=== PATIENT | female | born 1935 | race African-American/Black ===

== ENCOUNTER 2019-01-29 15:21 | Inpatient (IN) ==
[2019-01-29] MEDS ORDERED: ASPIRIN PO ONE (15:30)
--- NOTE | 2019-01-29 16:14 | PROVIDER DOCUMENTATION ---
HPI-Respiratory General - General Chief Complaint: Shortness of Breath Stated Complaint: SOB Time Seen by Provider: 01/29/19 15:23 Source: patient, family Allergies/Adverse Reactions: Patient Allergies Allergy/AdvReac Type Severity Reaction Status Date / Time No Known Allergies Allergy Verified 01/29/19 16:07 Home Medications: Home Medication List Medication Instructions Recorded Confirmed Last Taken Type Donepezil HCl 01/29/19 Unknown History - History of Present Illness-Resp Nature of Presenting Problem: reports having sob x4 days and worsenign today. when she takes deep breath she gets chest pressure of the left. nonradiating to her left arm, or jaw. denied fever chills, n/v, abd pain. +cough and rhinorrhea. Review of Systems - Adult - REVIEW OF SYSTEMS - ADULT Constitutional: reports: no symptoms reported Eyes: reports: no symptoms reported Ears, Nose, Mouth & Throat: reports: no symptoms reported Cardiovascular: reports: no symptoms reported Respiratory: reports: no symptoms reported Gastrointestinal: reports: no symptoms reported Genitourinary: reports: no symptoms reported Musculoskeletal: reports: no symptoms reported Integumentary: reports: no symptoms reported Neurological: reports: no symptoms reported Psychiatric: reports: no symptoms reported Endocrine: reports: no symptoms reported Hematologic/Lymphatic: reports: no symptoms reported Allergic/Immunologic: reports: no symptoms reported All Other Systems: Reviewed and Negative Past History - Adult - PAST MEDICAL HISTORY-ADULT Review of Records: reports: Old Records Reviewed, Nursing Assessment Review, Medications Reviewed, Social history reviewed & non-contributory. Major Childhood Illnesses: reports: denies history Cardiovascular: reports: HTN, hyperlipidemia Respiratory: reports: asthma Gastrointestinal: reports: denies history Obstetrical/Gynecological: reports: denies history Genitourinary: reports: denies history Musculoskeletal: reports: denies history Neurological: reports: denies history Endocrine/Immune: reports: denies history Other Conditions: reports: denies history - PRIOR SURGERIES/PROCEDURES Surgical/Procedure History: reports: hysterectomy - IMMUNIZATION STATUS Childhood Immunizations: See Nurse Assessment Flu Vaccine: See Nurse Assessment - FAMILY HISTORY Family History: reviewed, not pertinent - SOCIAL HISTORY Smoking: denies Substance Use: none/never Alcohol Use Frequency: never Living Situation: family Physical Exam-General - PHYSICAL EXAM-ADULT Initial Vital Signs Reviewed: Yes - CONSTITUTIONAL General Appearance: appears well, alert, moderate distress - EYES Eyes: PERRL/EOMI, pink conjunctivae - HEART Score HEART Score: History: Moderately Suspicious HEART Score: ECG: Non-Specific Repolarization Disturbance/LBBB/PM HEART Score: Age: > or = 65 Years HEART Score: Risk Factors for Atherosclerotic Disease: 1 or 2 Risk Factors HEART Score: Troponin: < or = Normal Limit Total HEART Score:: 5 Progress - PLAN OF CARE/RESULTS Progress/Plan/Lab Results: Vital Signs - 8 hr 01/29/19 15:23 01/29/19 17:27 Temperature 98.4 F 98.2 F Pulse Rate 104 H 100 H Respiratory Rate 20 20 Blood Pressure 152/89 128/70 O2 Sat by Pulse Oximetry 99 96 Laboratory Results - last 24 hr 01/29/19 01/29/19 01/29/19 16:26 17:14 17:14 WBC RBC Hgb Hct MCV MCH MCHC RDW Std Deviation Plt Count MPV Immature Gran % (Auto) Neut % (Auto) Lymph % (Auto) Dale % (Auto) Eos % (Auto) Baso % (Auto) Immature Gran # (Auto) Neut # (Auto) Lymph # (Auto) Dale # (Auto) Eos # (Auto) Baso # (Auto) PT INR PTT (Actin FS) D-Dimer, Quantitative 2.16 H Specimen Type ARTERIAL Sample Site R RADIAL pH 7.45 pCO2 32 L pO2 68 HCO3 24.0 Base Excess -1.0 Oxyhemoglobin 93.4 L ABG O2 Sat (Calculated) 17.6 ABG O2 Saturation 96.8 ABG Carboxyhemoglobin 2.40 ABG Methemoglobin 1.1 Db Test YES A-a O2 Difference 42.0 Total Hemoglobin 13.4 Lactate 0.60 Blood Gas Modality ROOM AIR FiO2 % 21.0 Sodium 139 Potassium 4.7 Chloride 103 Carbon Dioxide 23 L Anion Gap 13 BUN 12 Creatinine 0.8 Estimated GFR/1.73 m2 > 60 BUN/Creatinine Ratio 15 Glucose 91 Calculated Osmolality 277 Calcium 9.3 Magnesium 1.7 Total Bilirubin 0.30 AST 10 ALT 5 L Alkaline Phosphatase 111 H Creatine Kinase 47 Troponin T Dqx-R-Gkmystndqst Pept Total Protein 6.8 Albumin 3.6 Globulin 3.0 Albumin/Globulin Ratio 1.0 01/29/19 01/29/19 01/29/19 17:14 17:14 17:14 WBC 8.14 RBC 4.98 Hgb 12.5 Hct 38.9 MCV 78.1 L MCH 25.1 L MCHC 32.1 L RDW Std Deviation 15.1 H Plt Count 367 MPV 10.0 Immature Gran % (Auto) 0.2 Neut % (Auto) 69.2 Lymph % (Auto) 15.8 L Dale % (Auto) 12.3 H Eos % (Auto) 2.3 Baso % (Auto) 0.2 Immature Gran # (Auto) 0.02 Neut # (Auto) 5.62 Lymph # (Auto) 1.29 Dale # (Auto) 1.00 H Eos # (Auto) 0.19 Baso # (Auto) 0.02 PT 14.9 INR 1.11 PTT (Actin FS) 33.0 D-Dimer, Quantitative Specimen Type Sample Site pH pCO2 pO2 HCO3 Base Excess Oxyhemoglobin ABG O2 Sat (Calculated) ABG O2 Saturation ABG Carboxyhemoglobin ABG Methemoglobin Db Test A-a O2 Difference Total Hemoglobin Lactate Blood Gas Modality FiO2 % Sodium Potassium Chloride Carbon Dioxide Anion Gap BUN Creatinine Estimated GFR/1.73 m2 BUN/Creatinine Ratio Glucose Calculated Osmolality Calcium Magnesium Total Bilirubin AST ALT Alkaline Phosphatase Creatine Kinase Troponin T Ajs-V-Fbrkevgqbya Pept 2034 H Total Protein Albumin Globulin Albumin/Globulin Ratio 01/29/19 17:14 WBC RBC Hgb Hct MCV MCH MCHC RDW Std Deviation Plt Count MPV Immature Gran % (Auto) Neut % (Auto) Lymph % (Auto) Dale % (Auto) Eos % (Auto) Baso % (Auto) Immature Gran # (Auto) Neut # (Auto) Lymph # (Auto) Dale # (Auto) Eos # (Auto) Baso # (Auto) PT INR PTT (Actin FS) D-Dimer, Quantitative Specimen Type Sample Site pH pCO2 pO2 HCO3 Base Excess Oxyhemoglobin ABG O2 Sat (Calculated) ABG O2 Saturation ABG Carboxyhemoglobin ABG Methemoglobin Db Test A-a O2 Difference Total Hemoglobin Lactate Blood Gas Modality FiO2 % Sodium Potassium Chloride Carbon Dioxide Anion Gap BUN Creatinine Estimated GFR/1.73 m2 BUN/Creatinine Ratio Glucose Calculated Osmolality Calcium Magnesium Total Bilirubin AST ALT Alkaline Phosphatase Creatine Kinase Troponin T < 0.010 Igy-C-Xqwmfgllexm Pept Total Protein Albumin Globulin Albumin/Globulin Ratio Orders Category Date Time Status Admit - [facility] Routine AdmDCTranf 01/29/19 18:35 Active Cardiac Monitoring DIRECTED Care 01/29/19 15:29 Active Cardiac Monitoring DIRECTED Care 01/29/19 15:30 Active Nursing- Obtain EKG ONCE Care 01/29/19 15:29 Active Oxygen Therapy- ED Nursing DIRECTED Care 01/29/19 15:30 Active Saline Loc NOW Care 01/29/19 15:30 Active CHEST-2 VIEWS [RAD] Stat Exams 01/29/19 15:29 Completed CTA [CT ANGIOGRM PULMONARY ARTERIES] [CT] Stat Exams 01/29/19 18:32 Ordered ABG [RESP] Routine Lab 01/29/19 16:26 Completed CBC WITH ELECTRONIC DIFF [HEME] Stat Lab 01/29/19 17:14 Completed CK PROFILE [SP CHEM] Stat Lab 01/29/19 17:14 Completed COMPREHENSIVE METABOLIC PANEL [CHEM] Stat Lab 01/29/19 17:14 Completed D-DIMER [COAG] Stat Lab 01/29/19 17:14 Completed MAGNESIUM [CHEM] Stat Lab 01/29/19 17:14 Completed PRO B-NATRIURETIC PEPTIDE Stat Lab 01/29/19 17:14 Completed PROTIME WITH INR [COAG] Stat Lab 01/29/19 17:14 Completed PTT [COAG] Stat Lab 01/29/19 17:14 Completed TROPONIN T Stat Lab 01/29/19 17:14 Completed Acetaminophen [Tylenol] Med 01/29/19 18:01 Discontinued 1,000 mg PO NOW ONE Albuterol 2.5MG/Ipratrop 0.5MG [Duoneb (A & A)] Med 01/29/19 18:15 Active 3 ml INH RTQ4H Aspirin Med 01/29/19 15:30 Discontinued 325 mg PO NOW ONE CefTRIAXONE [Rocephin] 1 gm Med 01/29/19 17:23 Discontinued 0.9% Sodium Chloride Inj [Ns] 50 ml IV NOW Furosemide [Lasix] Med 01/29/19 18:36 Discontinued 60 mg IV NOW ONE Aerosol Treatments Routine Oth 01/29/19 18:16 Active Aerosol Treatments Stat Oth 01/29/19 18:16 Active CP/SOB/Palp >45 yrs of Age Stat Oth 01/29/19 15:30 Ordered EKG [EKG] Stat Ther 01/29/19 15:29 Ordered EKG [EKG] Stat Ther 01/29/19 15:30 Ordered Transfer/Admit Order [TRANSFER] Routine Transfer 01/29/19 18:36 Ordered [facility] [address], [address], [place] [address] Department of Imaging Patient: SANJAY MCKEON ADM Date: 01/29/19 MR#: [id number] : 1935 ADM Status: REG ER Age/Sex: 83/F Room/Bed: Loc: P.ED Ordering Physician: Sonia Guardado MD Family Physician: Pinky Smith MD Reason for Procedure: sob ___ Signed EXAM: CHEST-2 VIEWS INDICATION: sob TECHNIQUE: 2 views COMPARISON: 02/06/2018 FINDINGS: There is airspace consolidation at the right lung base suggesting pneumonia. The left lung appears clear. There is no discrete pleural fluid collection or pneumothorax. The cardiomediastinal silhouette and central vasculature are grossly unremarkable. IMPRESSION: Right basilar consolidation suggesting pneumonia. Electronically signed by Volodymyr Roldan 01/29/2019 5:14 PM 01/29/19 1714 Interpreting Physician: Volodymyr Roldan MD Dictated Date/Time: 01/29/19 171 cc: Sonia Guardado MD; Pinky Smith MD Result Diagrams: 01/29/19 17:14 01/29/19 17:14 - CONSULTS/PCP/HOSPITALIST Notification #1 *Consult/PCP/Hospitalist*: Dr. Stoner Time Discussed: 18:35 (PNA, CHF, elevated ddimer. ) Consult Disposition: Admit Departure - Departure Date of Disposition Decision: 01/29/19 Time of Disposition Decision: 19:10 DIAGNOSIS: CAP (community acquired pneumonia), CHF (congestive heart failure), D-dimer, elevated Disposition: ADMITTED INPATIENT 09 Certified Medical Emergency: Emergent Condition: Stable Referrals and Follow-Ups: Pinky Smith MD [Primary Care Provider] - - Critical Care Note This patient required my direct & personal management of CC.: No Attestation - Physician/ DEYSI Attestation The physician spent face to face time with patient:: Yes Advanced Practice Provider documentation review:: Supervising physician onsite and consulted in the evaluation and care of this patient. The physician did have a face to face encounter with the patient.
[2019-01-29 16:41] LABS: BLOOD TYPE ARTERIAL; METHB 1.1 % (0.0-1.5); O2(CT) 17.6 mL/dL (15.0-23.0); O2HB 93.4 % (95.0-99.0); PCO2(98.6) 32 mmHg (35-45); PO2(98.6) 68 mmHg (60-100); SAMPLE BLOOD; SAO2 96.8 % (95.0-100.0); THB 13.4 g/dL (11.5-17.4); pH(98.6) 7.45 (7.35-7.45)
[2019-01-29 16:45] LABS: ALLEN TEST YES; MODALITY ROOM AIR
--- NOTE | 2019-01-29 17:17 | Diag Imaging Result Doc PS360 ---
EXAM: CHEST-2 VIEWS INDICATION: sob TECHNIQUE: 2 views COMPARISON: 02/06/2018 FINDINGS: There is airspace consolidation at the right lung base suggesting pneumonia. The left lung appears clear. There is no discrete pleural fluid collection or pneumothorax. The cardiomediastinal silhouette and central vasculature are grossly unremarkable. IMPRESSION: Right basilar consolidation suggesting pneumonia. Electronically signed by Volodymyr Roldan 01/29/2019 5:14 PM
[2019-01-29] MEDS ORDERED: ROCEPHIN 1 GM in NS 50 ML IV ONE (17:23)
[2019-01-29 17:32] LABS: BASO# 0.02 X1000 (0.0-0.2); BASO% 0.2 % (0.0-0.8); EOS# 0.19 X1000 (0.0-0.7); EOS% 2.3 % (0.0-10.0); HEMATOCRIT 38.9 % (37.0-47.0); HEMOGLOBIN 12.5 g/dL (12.0-16.0); IMM GRAN# 0.02 X1000 (0.0-0.04); IMM GRAN% 0.2 % (0.0-0.5); LYMPH# 1.29 X1000 (1.2-3.4); LYMPH% 15.8 % (20.5-51.1); MCH 25.1 PG (27-31); MCHC 32.1 g/dL (33-37); MCV 78.1 FL (81-99); MONO% 12.3 % (1.7-9.3); NEUT# 5.62 X1000 (1.4-6.5); NEUT% 69.2 % (42.2-75.2); PLT 367 X1000 (130-400); RBC 4.98 XMIL (4.2-5.4); RDW 15.1 % (11.5-14.5); WBC 8.14 X1000 (4.8-10.8)
[2019-01-29 17:39] LABS: INR 1.11; PROTIME 14.9 Seconds (11.0-16.0)
[2019-01-29] MEDS ORDERED: TYLENOL PO ONE (18:01)
[2019-01-29] MEDS ORDERED: LASIX IV ONE (18:36)
[2019-01-29 18:45] LABS: AGAP 13; ALBUMIN 3.6 g/dL (3.5-5.0); ALKALINE PHOSPHATASE 111 U/L (32-104); BUN 12 mg/dL (8-22); CALCIUM 9.3 mg/dL (8.8-10.2); CHLORIDE 103 mmol/L (98-107); CK PROFILE 47 U/L (24-173); COSMO 277; CREATININE 0.8 mg/dL (0.5-0.9); ESTIMATED GFR > 60; GLUCOSE 91 mg/dL (70-104); GOT 10 U/L (10-30); GPT 5 U/L (10-36); MAGNESIUM 1.7 mg/dL (1.5-2.7); POTASSIUM 4.7 mmol/L (3.5-5.1); SODIUM 139 mmol/L (136-145); TCO2 23 mmol/L (25-35); TOTAL PROTEIN 6.8 g/dL (6.3-8.3)
[2019-01-29] MEDS: DUONEB (A & A) INH SCH ×3 (18:58→23:20)
--- NOTE | 2019-01-29 20:37 | Diag Imaging Result Doc PS360 ---
EXAM: CT ANGIOGRM PULMONARY ARTERIES INDICATION: pe TECHNIQUE: This exam was performed using automated exposure control, adjustment of mA or kV according to patient size, and/or use of iterative reconstruction technique. Thin section axial images and 3-D MIPS were obtained. COMPARISON: None. FINDINGS: The pulmonary artery contrast bolus is slightly suboptimal. More of the contrast is in the pulmonary veins. There is a single small branch of the right pulmonary artery leading to the right lower lobe that can be seen on image 73 of series 4 that exhibits decreased opacification. Although this could be due to the suboptimal contrast bolus, a small pulmonary embolism cannot completely be excluded. No other pulmonary artery filling defects are appreciated. There is no thoracic aortic dissection or aneurysm. There are a few calcified mediastinal and right hilar lymph nodes indicating prior granulomatous disease. There is cardiomegaly. There are mild emphysematous changes. There is subsegmental atelectasis at both lower lung zones, more prominent on the right. Superimposed pneumonia, especially in the right middle lobe cannot completely be excluded. There is trace pleural fluid on the right. There is no pneumothorax. Limited views of the upper abdomen reveal several simple appearing renal cysts. IMPRESSION: 1.Small branch of the right pulmonary artery with diminished opacification. Although somewhat questionable, a solitary small pulmonary embolism cannot be excluded. 2.Mild pulmonary emphysema. 3.Subsegmental atelectasis at the lower lung zones, more prominent on the right. Superimposed pneumonia on the right is not excluded. 4.Other incidental/nonacute findings detailed above. Electronically signed by Volodymyr Roldan 01/29/2019 8:34 PM
[2019-01-30] MEDS: DUONEB (A & A) INH SCH ×5 (03:11→19:37)
--- NOTE | 2019-01-30 07:31 | EKG Report ---
Test Performed on : 01/29/2019 7:53:47 PM Test Reason : cp Blood Pressure : / mmHG Vent. Rate : 126 BPM Atrial Rate : 126 BPM P-R Int : 142 ms QRS Dur : 092 ms QT Int : 326 ms P-R-T Axes : 067 -42 117 degrees QTc Int : 472 ms Sinus tachycardia. Left axis deviation Left ventricular hypertrophy with repolarization abnormality Abnormal ECG When compared with ECG of 29-JAN-2019 15:46, (Unconfirmed) No significant change was found Unconfirmed Result
[2019-01-30 08:01] LABS: BASO# 0.04 X1000 (0.0-0.2); BASO% 0.5 % (0.0-0.8); EOS# 0.07 X1000 (0.0-0.7); EOS% 0.9 % (0.0-10.0); HEMATOCRIT 41.1 % (37.0-47.0); HEMOGLOBIN 13.2 g/dL (12.0-16.0); IMM GRAN# 0.01 X1000 (0.0-0.04); IMM GRAN% 0.1 % (0.0-0.5); LYMPH# 0.93 X1000 (1.2-3.4); LYMPH% 11.4 % (20.5-51.1); MCHC 32.1 g/dL (33-37); MONO# 0.74 X1000 (0.11-0.59); MONO% 9.1 % (1.7-9.3); MPV 9.5 FL (7.4-10.4); NEUT# 6.34 X1000 (1.4-6.5); PLT 388 X1000 (130-400); RBC 5.27 XMIL (4.2-5.4); WBC 8.13 X1000 (4.8-10.8)
[2019-01-30 08:24] LABS: CALCIUM 9.5 mg/dL (8.8-10.2); POTASSIUM 4.2 mmol/L (3.5-5.1)
[2019-01-30] MEDS: ROCEPHIN 2 GM in NS 50 ML IV SCH (09:29)
[2019-01-30] MEDS: ARICEPT PO SCH (10:34)
[2019-01-30] MEDS: LOVENOX SUBQ SCH ×2 (10:34→21:34)
--- NOTE | 2019-01-30 10:49 | HISTORY AND PHYSICAL ---
PRIMARY CARE PHYSICIAN: Pinky Smith MD CHIEF COMPLAINT: Shortness of breath and some left-sided chest pain nonradiating for the past 4 days that had progressively worsened. HISTORY OF PRESENTING ILLNESS: This is an 83-year-old female who presents to [facility] ER with complaints of shortness of breath for 4 days that progressively worsened. She began having some left-sided chest pain and pressure that did not radiate to her arm, jaw, or back. Her heart score was 5. Her workup showed a D-dimer of 2.16. Cardiac enzymes x2 sets were negative. We did a pulmonary arteriogram that showed an impression of a small branch of the right pulmonary artery with diminished opacification, although somewhat questionable, a solitary small pulmonary embolism could not be excluded. She had a superimposed pneumonia on the right. Also, her chest x-ray also showed the right basilar consolidation suggesting pneumonia. So, she is being admitted to the medical unit for further evaluation and treatment. PAST MEDICAL HISTORY: Hypertension, hyperlipidemia and asthma. PAST SURGICAL HISTORY: Hysterectomy. FAMILY HISTORY: Reviewed and noncontributory. SOCIAL HISTORY: She currently lives with family. Denies any tobacco, alcohol or illicit drug use. ALLERGIES: She has no known drug allergies. HOME MEDICATIONS: She takes donepezil 5 mg p.o. daily. LABORATORY DATA: White blood cell count of 8.14, hemoglobin 12.5, hematocrit 38.9, and platelets 367,000. PT and INR of 14.9 and 1.11 with a D-dimer of 2.16. ABG with a pH of 7.45, pCO2 of 32, PO2 68, and bicarb 24. Sodium 139, potassium 4.7, chloride 103, CO2 23, BUN of 12, creatinine of 0.8, glucose 91, and magnesium of 1.7. Cardiac enzymes x2 sets were negative. Chest x-ray showed a right basilar consolidation suggesting pneumonia. Pulmonary arteriogram showed a small branch of the right pulmonary artery with diminished opacification although somewhat questionable a solitary small pulmonary embolism cannot be excluded. A superimposed pneumonia on the right is not excluded, and mild pulmonary emphysema. REVIEW OF SYSTEMS: She denied any fever, chills, blurred vision, or dizziness. She had some left- sided chest pain and shortness of breath. No cough. Denied any abdominal pain, constipation, diarrhea, burning or hurting with urination. PHYSICAL EXAMINATION: On arrival, she had a temperature of 98.4 degrees, pulse of 104, respirations 20, blood pressure 152/89, and saturating 99% on room air. GENERAL: This is an 83-year-old female who is lying in the bed and answers questions appropriately. HEENT: Normocephalic, atraumatic. Normal ENT inspection. Pupils are equal, round, reactive and to light and accommodation. Extraocular movements are intact. NECK: Normal on inspection. Normal range of motion. LUNGS: Clear to auscultation bilaterally with equal lung expansion and chest wall movement. HEART: Regular rate and rhythm. No murmurs, rubs, or gallops. ABDOMEN: Soft, nontender, and nondistended. Bowel sounds are present x4 quadrants. MUSCULOSKELETAL: She has 5/5 strength x4 extremities. NEUROLOGICAL: The cranial nerves 2-12 appear grossly intact. ASSESSMENT: 1. Right lower lobe pneumonia. 2. Right lung pulmonary emboli. 3. Elevated D-dimer. 4. Hypertension. PLAN: She has been admitted to the medical unit at [facility], and placed on telemetry O2 per protocol. We will place on healthy heart diet. We are going to check a bilateral lower extremity venous Doppler. Place her on Lovenox 1 mg/kg subcu q.12h, DuoNeb q.4 hours, Levaquin 750 mg IV q.24, Rocephin 2 g IV q.24. Continue her home medication as previously identified. We have an echocardiogram that is pending. Further orders after being seen by attending. We will recheck a CBC and BMP in the morning. Dictated by ODETTE Wiseman for Cody Roth MD Addendum: Patient seen and examined by myself. Agree with ODETTE note. It reflects my assessment and plan. Patient is being admitted for right lower lobe pneumonia. Upon my examination this morning she was feeling better. CT angio of chest did reveal also small pulmonary emboli, so will start Lovenox 1 mg/kg q12hrs and broad spectrum IV antibiotics. Will also order an echo and will monitor patient closely. cc: MD Madina De Jesus CRNP Cesar Garcia-Rodriguez, MD [facility]
[2019-01-30] MEDS: LEVAQUIN 750 MG/D5W 750 MG/150 ML IVPB IV SCH (10:55)
--- NOTE | 2019-01-30 14:10 | Extremity Venous Study ---
EXAM: Venous U/S Bilateral Legs HISTORY: Right PE, elevated ddimer TECHNIQUE: Back scale, color Doppler, and duplex evaluation was performed. COMPARISON: None. FINDINGS: The deep veins of the bilateral lower extremities demonstrate appropriate compressibility and augmentation. No intraluminal thrombus is visualized. There is no evidence for DVT. The superficial veins appear patent. IMPRESSION: No evidence for deep venous thrombosis bilateral lower extremities. Electronically signed by Michelle Erazo 01/30/2019 2:08 PM
[2019-01-30 15:57] LABS: BILIRUBIN URINE NEGATIVE (NEGATIVE); CLARITY CLEAR (CLEAR); COLOR YELLOW; GLUCOSE URINE NEGATIVE (NEGATIVE); KETONE URINE NEGATIVE (NEGATIVE); URINE SOURCE CLEAN CATCH
[2019-01-30 15:58] LABS: BLOOD URINE NEGATIVE (NEGATIVE); LEUKOCYTES URINE NEGATIVE (NEGATIVE); NITRITE URINE NEGATIVE (NEGATIVE); PROTEIN URINE TRACE mg/dL (NEGATIVE); SP GRAVITY URINE 1.015; UROBILINOGEN URINE NORMAL
[2019-01-30 16:10] LABS: URINE BACTERIA NEGATIVE /HFP; URINE CAST NONE SEEN /LPF; URINE EPITHELIAL CELLS <10 /HPF (<10); URINE RBC <10 /HPF (<10); URINE WBC <10 /HPF (<10); URINE YEAST NONE SEEN /HPF
[2019-01-30 16:11] LABS: URINE CRYSTAL NONE SEEN /HPF
--- NOTE | 2019-01-30 16:57 | ECHO REPORT ---
ORDER DATE: 01/30/2019 INTERPRETING PHYSICIAN: Scott Doyle MD REASON FOR THIS STUDY: CHF and pulmonary edema. This study is technically difficult. M-MODE MEASUREMENTS: Left ventricle end diastole: 4.49 cm. Left ventricle end systole: 2.79 cm. Posterior wall: 1.5 cm. Interventricular septum: 1.5 cm. Left atrium: 2.8 cm. Aortic root: 2.2 cm. SUMMARY OF 2-DIMENSIONAL IMAGIN. The left ventricular systolic function appears to be moderately impaired estimated at 43%. There is moderate concentric LVH. There is atypical contractility of the intraventricular septum. 2. The aortic valve shows sclerosis of the cusps with a mild degree of regurgitation. 3. The pulmonic valve shows some degree of regurgitation. 4. The mitral valve shows a trivial degree of regurgitation. 5. The left atrium appears to be moderately enlarged. 6. The pulsed wave Doppler of mitral inflow shows fusion of the E and the A waves. There is probably impaired left ventricular relaxation. The E prime and the A prime waves are also fused. Especially at the level of the lateral septum. 7. The tricuspid valve shows no significant regurgitation. Pulmonary pressure cannot be accurately estimated here. 8. The inferior vena cava is not dilated. SUMMARY: In summary, this study shows: 1. Moderately impaired systolic function. Ejection fraction is 43% with atypical contractility of the interventricular septum. There is moderate concentric left ventricular hypertrophy. 2. There is probably diastolic dysfunction with fusion of the E and the A waves. 3. There is a gmvl-ln-thypplli degree of aortic regurgitation. The aortic root measures 3.4 cm. There is no aortic stenosis. There is some sclerosis. 4. Pulmonary pressure cannot be calculated. Clinical correlation is recommended. The study was very difficult. cc: MD Cody Andrew MD
[2019-01-31] MEDS: DUONEB (A & A) INH SCH ×7 (04:23→23:21)
[2019-01-31 07:38] LABS: BASO# 0.02 X1000 (0.0-0.2); BASO% 0.3 % (0.0-0.8); EOS# 0.12 X1000 (0.0-0.7); EOS% 1.8 % (0.0-10.0); HEMOGLOBIN 11.3 g/dL (12.0-16.0); IMM GRAN# 0.01 X1000 (0.0-0.04); IMM GRAN% 0.1 % (0.0-0.5); LYMPH# 0.92 X1000 (1.2-3.4); LYMPH% 13.8 % (20.5-51.1); MCH 24.1 PG (27-31); MCHC 31.4 g/dL (33-37); MCV 76.9 FL (81-99); MONO# 0.76 X1000 (0.11-0.59); MONO% 11.4 % (1.7-9.3); MPV 9.6 FL (7.4-10.4); NEUT# 4.84 X1000 (1.4-6.5); NEUT% 72.6 % (42.2-75.2); PLT 395 X1000 (130-400); RBC 4.68 XMIL (4.2-5.4); RDW 14.9 % (11.5-14.5); WBC 6.67 X1000 (4.8-10.8)
[2019-01-31 07:56] LABS: CALCIUM 9.4 mg/dL (8.8-10.2); CREATININE 0.9 mg/dL (0.5-0.9); POTASSIUM 3.6 mmol/L (3.5-5.1)
[2019-01-31] MEDS: ROCEPHIN 2 GM in NS 50 ML IV SCH (09:15)
[2019-01-31] MEDS: ARICEPT PO SCH (09:15)
[2019-01-31] MEDS: LOVENOX SUBQ SCH ×2 (11:19→21:47)
[2019-01-31] MEDS: LEVAQUIN 750 MG/D5W 750 MG/150 ML IVPB IV SCH (11:19)
[2019-01-31] MEDS ORDERED: ZOFRAN IV PRN (14:01)
[2019-01-31] MEDS: NS 1,000 ML IV SCH (14:11)
--- NOTE | 2019-01-31 15:02 | PROGRESS NOTE ---
DATE: 01/31/2019 SUBJECTIVE: Patient reports feeling fine. Reports some nausea and she is getting medication for that. No difficulty in breathing. No chest pain. No chest discomfort. OBJECTIVE: Vital Signs: Temperature 98.4 degrees, heart rate 114, respiratory rate 16, blood pressure 96/63, O2 saturation 98% on 2 L nasal cannula. General Examination: This is a chronically ill-appearing, 83-year-old female lying in bed, in no acute distress. Cardiovascular: S1, S2 heard. Tachycardic but no murmurs, gallops, or rubs. Regular rate and rhythm. Respiratory: Clear bilaterally to auscultation. No work of breathing or using accessory muscles. Abdomen: Soft, nontender to palpation. Bowel sounds present. No organomegaly. Extremities: No clubbing, cyanosis, or edema. Peripheral pulses present in both legs. Neurological: Patient is alert and oriented x3. Moves 4 extremities. LABORATORY DATA: Reviewed. ASSESSMENT AND PLAN: 1. Right lower lobe pneumonia. Patient is on ceftriaxone and Levaquin. The patient is also on DuoNeb every 4 hours scheduled. We will continue with the same management. She is not complaining of any shortness of breath. We will continue checking CBC daily. 2. Right lung pulmonary emboli. Patient has been started on Lovenox 1 mg/kg every 12 hours. Will continue with the same management. 3. Hypertension. Blood pressure is under control. We will continue with the same management. 4. Nausea and vomiting. Patient receiving Zofran p.r.n. We will continue to monitor the patient closely. cc: Cody Roth MD
[2019-02-01] MEDS: DUONEB (A & A) INH SCH ×2 (03:09→08:16)
[2019-02-01] MEDS: NS 1,000 ML IV SCH ×2 (06:11→07:56)
[2019-02-01 07:47] LABS: BASO# 0.02 X1000 (0.0-0.2); BASO% 0.3 % (0.0-0.8); EOS# 0.18 X1000 (0.0-0.7); HEMATOCRIT 33.3 % (37.0-47.0); HEMOGLOBIN 10.6 g/dL (12.0-16.0); IMM GRAN# 0.02 X1000 (0.0-0.04); IMM GRAN% 0.3 % (0.0-0.5); LYMPH# 0.74 X1000 (1.2-3.4); LYMPH% 12.3 % (20.5-51.1); MCH 24.8 PG (27-31); MCHC 31.8 g/dL (33-37); MCV 77.8 FL (81-99); MONO# 0.66 X1000 (0.11-0.59); MONO% 10.9 % (1.7-9.3); MPV 9.7 FL (7.4-10.4); NEUT# 4.42 X1000 (1.4-6.5); NEUT% 73.2 % (42.2-75.2); PLT 364 X1000 (130-400); RBC 4.28 XMIL (4.2-5.4); RDW 14.6 % (11.5-14.5); WBC 6.04 X1000 (4.8-10.8)
[2019-02-01 07:57] LABS: CALCIUM 8.7 mg/dL (8.8-10.2); CREATININE 0.9 mg/dL (0.5-0.9); POTASSIUM 3.5 mmol/L (3.5-5.1)
[2019-02-01] MEDS: ROCEPHIN 2 GM in NS 50 ML IV SCH (07:57)
[2019-02-01 08:02] VITALS: BP 122/83
[2019-02-01] MEDS: LEVAQUIN 750 MG/D5W 750 MG/150 ML IVPB IV SCH (08:02)
[2019-02-01] MEDS: ARICEPT PO SCH (08:02)
[2019-02-01] MEDS ORDERED: XARELTO PO SCH (09:45)
--- NOTE | 2019-02-01 11:09 | DISCHARGE SUMMARY ---
ADMISSION DATE: 01/29/2019 DISCHARGE DATE: 02/01/2019 PRIMARY CARE PHYSICIAN: Dr. Pinky Smith. ADMISSION DIAGNOSES: 1. Right lower lobe pneumonia. 2. Right lung pulmonary emboli. 3. Elevated D-dimer. 4. Hypertension. DISCHARGE DIAGNOSES: 1. Right lower lobe pneumonia. 2. Right lung pulmonary emboli. 3. Elevated D-dimer. 4. Hypertension. SUMMARY OF FINDINGS: This is an 83-year-old female who presented to the emergency room with complaints of shortness of breath for 4 days prior to arriving that had progressively worsened. She had been having some left-sided chest pain and pressure that did not radiate to her arm, jaw, or back. Her heart score was 5. Her D-dimer was noted to be 2.16. Cardiac enzymes x3 sets were negative. We did a pulmonary arteriogram that showed an impression of a small branch of the right pulmonary artery with diminished opacification, although somewhat questionable. A solitary small pulmonary embolism could not be excluded, and she had a superimposed pneumonia on the right lung. Chest x-ray also showed a right basilar consolidation suggesting pneumonia. She was admitted, and placed on strict bedrest for the first 48 hours, and started on Lovenox 1 mg/kg subcutaneously q.12. She was placed on Levaquin 750 mg IV q.24, Rocephin 2 g IV q.24, and DuoNeb q.4 hours. We did an echocardiogram on 01/30/2019 that showed an estimated ejection fraction at 43% with some moderately impaired left ventricular systolic function. We did a bilateral lower extremity venous Doppler that showed no evidence of a DVT in bilateral lower extremities. She has responded well to her treatment. We have transitioned today over to Xarelto 15 mg p.o. b.i.d. for 3 weeks and then 20 mg daily. Discontinue her Alvarez catheter. Discontinue her fluids. It is now felt that she can safely be discharged home. DISCHARGE MEDICATIONS: 1. Omnicef 300 mg p.o. b.i.d. #14 with no refills. 2. A prescription for Xarelto 15 mg p.o. b.i.d. #42 with no refills, and then 20 mg p.o. daily #30 with 5 refills. DISCHARGE INSTRUCTIONS: We had physical therapy to evaluate and treat, and they felt that she needed home health to become a little stronger, so we will set her up with home health as well. She is to follow up with her primary care physician in the next 1 to 2 weeks. All discharge instructions have been reviewed with the patient and her . They both verbalized understanding. TIME SPENT: This is a 35 minute discharge. Dictated by ODETTE Wiseman for Cody Roth MD Addendum: Patient seen and examined by myself. Agree with ODETTE note. It reflects my assessment and plan. Patient is being discharged from hospital in stable condition. cc: MD Madina De Jesus CRNP Cesar Garcia-Rodriguez, MD [facility]
== END 2019-02-01 11:27 | disposition home health service (06) | DRG 175 ==
LOC: P.ED 15:21 → P.MEDSURG 20:29
PROVIDERS: ADMIT Internal Medicine; ATTEND Internal Medicine
CPT/HCPCS: 71020; 71046; 71275; 80048; 80053; 81001; 82550; 82805; 83735; 83880; 84484; 85025; 85379; 85610; 85730; 93005; 93306; 93970; 94640; 94761; 96365; 96375; 97162; 99285; A9270; J0696; J1650; J1940; J1956; J2405; J7030; Q9967